=== PATIENT | female | born 1940 | race Hispanic/Latino ===

== ENCOUNTER → 2018-03-21 | Outpatient (CLI) | payer OTHER | END | disposition home or self-care (01) | LOC: RAH 13:47 | PROVIDERS: ATTEND Internal Medicine | DX: Z12.31 Encounter for screening mammogram for malignant neoplasm of breast (principal) | CPT/HCPCS: 77067 ==

== ENCOUNTER → 2018-05-04 | Outpatient (CLI) | payer OTHER | END | disposition home or self-care (01) | LOC: SHCH 14:45 | PROVIDERS: ATTEND Internal Medicine Cardiovascular Disease | DX: R00.1 Bradycardia, unspecified (principal) | CPT/HCPCS: 93306 ==

== ENCOUNTER → 2019-01-03 | Outpatient (CLI) | payer OTHER | END | disposition home or self-care (01) | LOC: RAH 10:58 | PROVIDERS: ATTEND Physical Medicine & Rehabilitation | DX: M54.6 Pain in thoracic spine (principal); M25.512 Pain in left shoulder | CPT/HCPCS: 72072; 73030 ==

== ENCOUNTER → 2019-03-05 | Outpatient (CLI) | payer OTHER, MEDICARE | END | disposition home or self-care (01) | LOC: RAH 12:27 | PROVIDERS: ATTEND Physical Medicine & Rehabilitation | DX: M48.02 Spinal stenosis, cervical region (principal) | CPT/HCPCS: 72050 ==

== ENCOUNTER → 2019-03-26 | Outpatient (CLI) | payer OTHER, MEDICARE | END | disposition home or self-care (01) | LOC: RAH 10:46 | PROVIDERS: ATTEND Physical Medicine & Rehabilitation | DX: M47.812 Spondylosis without myelopathy or radiculopathy, cervical region (principal); M48.02 Spinal stenosis, cervical region; M50.222 Other cervical disc displacement at C5-C6 level | CPT/HCPCS: 72141 ==

== ENCOUNTER 2019-06-01 01:43 | Emergency (ER) | payer OTHER, MEDICARE ==
[2019-06-01 02:22] LABS: BASOPHILS % (AUTO) 0.6 % (0.0-5.0); EOSINOPHILS % (AUTO) 8.4 % (0.0-8.0); HEMATOCRIT 36.6 % (36-48); LYMPHOCYTES % (AUTO) 33.8 % (21.0-51.0); MEAN CORPUSCULAR HEMOGLOBIN 28.8 pg (27.0-33.0); MEAN CORPUSCULAR HGB CONC 32.8 g/dL (32.0-36.0); MEAN CORPUSCULAR VOLUME 87.8 fL (79-99); MONOCYTES % (AUTO) 10.3 % (3.0-13.0); NEUTROPHILS % (AUTO) 46.7 % (40.0-77.0); PLATELET COUNT (AUTO) 239 K/uL (130-400); RED BLOOD CELL COUNT(AUTO) 4.17 MIL/uL (4.00-5.50); RED CELL DISTRIBUTION WIDTH 12.4 % (11.0-15.5); WHITE BLOOD COUNT (AUTO) 6.2 K/uL (4.8-10.8)
[2019-06-01 02:27] LABS: POTASSIUM 3.9 mmol/L (3.5-5.1)
== END 2019-06-01 03:14 | disposition home or self-care (01) ==
LOC: EDH 01:43
DX: F43.0 Acute stress reaction (principal); I25.10 Atherosclerotic heart disease of native coronary artery without angina pectoris; K21.9 Gastro-esophageal reflux disease without esophagitis; Z91.041 Radiographic dye allergy status
CPT/HCPCS: 36415; 74018; 80048; 84484; 85025; 93005

== ENCOUNTER → 2020-08-04 | Outpatient (CLI) | payer OTHER, MEDICARE | END | disposition home or self-care (01) | LOC: SHCH 12:38 | PROVIDERS: ATTEND Internal Medicine Cardiovascular Disease | DX: I87.2 Venous insufficiency (chronic) (peripheral) (principal); I73.89 Other specified peripheral vascular diseases | CPT/HCPCS: 93925; 93970 ==

== ENCOUNTER → 2020-08-07 | Outpatient (CLI) | payer OTHER, MEDICARE ==
[~2020-08-07] VITALS: Ht 157.5 cm; Wt 78.0 kg
[~2020-08-07] MED LIST: REGADENOSON 0.4 MG/5 ML PF SYG IVP SCH
== END | disposition home or self-care (01) ==
LOC: SHCH 07:38
PROVIDERS: ATTEND Internal Medicine Cardiovascular Disease
DX: R07.9 Chest pain, unspecified (principal)
CPT/HCPCS: 78452; 93017; 96374; A9500 ×2; J2785

== ENCOUNTER → 2021-12-20 | Outpatient (CLI) | payer OTHER, MEDICARE | END | disposition home or self-care (01) | LOC: RAH 09:46 | PROVIDERS: ATTEND Internal Medicine | DX: M54.2 Cervicalgia (principal); M79.602 Pain in left arm; M79.601 Pain in right arm; M54.12 Radiculopathy, cervical region | CPT/HCPCS: 72040; 73030 ==

== ENCOUNTER → 2022-07-23 | Outpatient (CLI) | payer OTHER, MEDICARE | END | disposition home or self-care (01) | LOC: SHCH 08:55 | PROVIDERS: ATTEND Internal Medicine Cardiovascular Disease | DX: I65.23 Occlusion and stenosis of bilateral carotid arteries (principal); I25.10 Atherosclerotic heart disease of native coronary artery without angina pectoris; I11.9 Hypertensive heart disease without heart failure; E78.5 Hyperlipidemia, unspecified; I87.2 Venous insufficiency (chronic) (peripheral); I49.3 Ventricular premature depolarization; Z79.899 Other long term (current) drug therapy | CPT/HCPCS: 93880 ==

== ENCOUNTER 2022-11-28 11:21 | Observation (INO) | payer OTHER, MEDICARE ==
[~2022-11-28] VITALS: Ht 157.5 cm; Wt 70.1 kg
[2022-11-28 11:57] LABS: BASOPHILS % (AUTO) 0.5 % (0.0-5.0); EOSINOPHILS % (AUTO) 10.2 % (0.0-8.0); HEMATOCRIT 32.2 % (36-48); LYMPHOCYTES % (AUTO) 20.8 % (21.0-51.0); MEAN CORPUSCULAR HEMOGLOBIN 29.1 pg (27.0-33.0); MEAN CORPUSCULAR HGB CONC 32.9 g/dL (32.0-36.0); MEAN CORPUSCULAR VOLUME 88.5 fL (79-99); MONOCYTES % (AUTO) 9.1 % (3.0-13.0); NEUTROPHILS % (AUTO) 59.1 % (40.0-77.0); PLATELET COUNT (AUTO) 199 K/uL (130-400); RED BLOOD CELL COUNT(AUTO) 3.64 MIL/uL (4.00-5.50); RED CELL DISTRIBUTION WIDTH 12.7 % (11.0-15.5); WHITE BLOOD COUNT (AUTO) 6.5 K/uL (4.8-10.8)
[2022-11-28] MEDS ORDERED: NITROGLYCERIN 0.4 MG SL TAB SL PRN ×2 (12:00→13:30)
[2022-11-28 12:04] LABS: POTASSIUM 4.2 mmol/L (3.5-5.1)
[2022-11-28 12:17] LABS: ALBUMIN 3.5 g/dL (3.5-5.0); MAGNESIUM 2.1 mg/dL (1.80-2.40); THYROID STIMULATING HORMONE 2.25 uIU/mL (0.36-3.74); TOTAL PROTEIN, SERUM 6.8 g/dL (6.0-8.3)
[2022-11-28] MEDS ORDERED: ASPIRIN 81MG CHEW TAB PO ONE (13:30)
[2022-11-28 13:51] LABS: APPEARANCE,URINE CLEAR (CLEAR); BILIRUBIN,URINE NEGATIVE (NEGATIVE); COLOR,URINE COLORLESS (YELLOW); GLUCOSE, URINE (UA) NEGATIVE (NEGATIVE); KETONES,URINE NEGATIVE (NEGATIVE); LEUKOCYTE ESTERASE ,URINE NEGATIVE Leu/uL (NEGATIVE); NITRATE,URINE NEGATIVE (NEGATIVE); OCCULT BLOOD,URINE NEGATIVE (NEGATIVE); PH,URINE 6.5 (5.0-8.0); PROTEIN,URINE NEGATIVE (NEGATIVE); UROBILINOGEN,URINE 0.2 mg/dL (0.2-1.0)
[2022-11-28 13:56] LABS: HEMOGLOBIN A1C 5.8 % (4.0-6.0)
[2022-11-28] MEDS ORDERED: ALBUTEROL INHALER 90MCG/INH IH PRN (17:00)
[2022-11-28] MEDS ORDERED: LORA10TA7 PO (18:41)
[2022-11-28] MEDS ORDERED: CARV25TA PO (18:41)
[2022-11-28] MEDS ORDERED: OMEP40CA21 PO (18:41)
[2022-11-28 23:40] VITALS: BP 144/63; PULSE 55; RESP 18
[2022-11-29 00:19] VITALS: O2SAT 97
[2022-11-29 03:40] VITALS: BP 140/71; PULSE 55; RESP 18
[2022-11-29 06:22] LABS: BASOPHILS % (AUTO) 0.7 % (0.0-5.0); EOSINOPHILS % (AUTO) 9.1 % (0.0-8.0); LYMPHOCYTES % (AUTO) 22.7 % (21.0-51.0); MEAN CORPUSCULAR HEMOGLOBIN 29.1 pg (27.0-33.0); MEAN CORPUSCULAR HGB CONC 32.4 g/dL (32.0-36.0); MEAN CORPUSCULAR VOLUME 89.7 fL (79-99); MONOCYTES % (AUTO) 9.1 % (3.0-13.0); NEUTROPHILS % (AUTO) 58.3 % (40.0-77.0); PLATELET COUNT (AUTO) 220 K/uL (130-400); RED BLOOD CELL COUNT(AUTO) 3.68 MIL/uL (4.00-5.50); RED CELL DISTRIBUTION WIDTH 12.9 % (11.0-15.5); WHITE BLOOD COUNT (AUTO) 7.1 K/uL (4.8-10.8)
[2022-11-29 06:31] LABS: CREATININE 0.9 mg/dL (0.5-1.5); POTASSIUM 3.9 mmol/L (3.5-5.1)
[2022-11-29] MEDS ORDERED: NITR0.3T11 SL (07:35)
[2022-11-29 08:00] VITALS: BP 133/61; PULSE 51; RESP 18; O2SAT 97
[2022-11-29] MEDS ORDERED: CARVEDILOL 25 MG TABLET PO SCH (08:00)
[2022-11-29] MEDS ORDERED: PANTOPRAZOLE 40 MG TAB DR PO SCH (09:00)
[2022-11-29] MEDS ORDERED: ASPIRIN 81MG CHEW TAB PO SCH (09:00)
[2022-11-29 12:00] VITALS: BP 155/79; PULSE 51; RESP 17
[2022-11-29 16:00] VITALS: BP 152/77; PULSE 52; RESP 18
== END 2022-11-29 16:20 | disposition home or self-care (01) ==
LOC: EDH 11:21 → INTOOBSV 13:16 → EDHIP 13:16 → EEVIPCON 13:16 → 3DH 22:54
PROVIDERS: ADMIT Internal Medicine; ATTEND Internal Medicine
DX: R07.89 Other chest pain (principal); I10 Essential (primary) hypertension; I49.3 Ventricular premature depolarization; J45.909 Unspecified asthma, uncomplicated; E11.9 Type 2 diabetes mellitus without complications; E78.5 Hyperlipidemia, unspecified; T50.2X5A Adverse effect of carbonic-anhydrase inhibitors, benzothiadiazides and other diuretics, initial encounter; Z86.718 Personal history of other venous thrombosis and embolism; Z79.899 Other long term (current) drug therapy; Z98.890 Other specified postprocedural states
CPT/HCPCS: 99285; 83036; 84443; 82550; 83735; 84484 ×3; 80053; 85025 ×2; 81003; 36415 ×2; 71045; 93005; 80048; 93306; G0378 ×4

== ENCOUNTER → 2024-01-06 | Outpatient (CLI) | payer OTHER, MEDICARE ==
[~2024-01-06] MED LIST changes: +CARV25TA PO; +LORA10TA7 PO; +NITR0.3T11 SL; +OMEP40CA21 PO; -REGADENOSON 0.4 MG/5 ML PF SYG IVP SCH
== END | disposition home or self-care (01) ==
LOC: SHCH 08:25
PROVIDERS: ATTEND Internal Medicine Cardiovascular Disease
DX: I87.2 Venous insufficiency (chronic) (peripheral) (principal); I87.1 Compression of vein; I73.9 Peripheral vascular disease, unspecified
CPT/HCPCS: 93925; 93970

== ENCOUNTER → 2024-04-23 | Outpatient (CLI) | payer OTHER, MEDICARE ==
--- NOTE | 2024-04-23 10:55 | HMCIMG ---
Exam: CERVICAL SPINE 2 VIEWS REASON: DORSALGIA, UNSPECIFIED TECHNIQUE: 12/20/2021 views were obtained. FINDINGS: There are normal appearing vertebral bodies. There is moderate interspace narrowing C5-6. There are mild degenerative changes in the facets. There are no visible fractures. Soft tissues appear unremarkable. IMPRESSION: 1. Mild cervical degenerative changes epicentered at C5-6 disc interspace.
--- NOTE | 2024-04-23 11:01 | HMCIMG ---
EXAM: LUMBAR SPINE 2-3VWS REASON: DORSALGIA, UNSPECIFIED. COMPARISON: None. TECHNIQUE: 3 views of the lumbar spine were obtained. FINDINGS: There is 7 degrees and DEXA scoliosis of the mid lumbar spine. There is 5 mm anterior subluxation of L5 4 on L5. There is mild interspace narrowing at L4-5 and at L3-4. There are degenerative changes in the facets most pronounced at L4-5 and L5-S1. There are no compression fractures. Remaining vertebral disc space heights are preserved and alignment is otherwise unremarkable. Soft tissues appear unremarkable. IMPRESSION: 1. Lumbar spine degenerative changes with 7 degree dextroscoliosis. 2. There is also 5 mm anterior subluxation of L4 on L5.
== END | disposition home or self-care (01) ==
LOC: RAH 09:15
PROVIDERS: ATTEND Internal Medicine
DX: S33.140A Subluxation of L4/L5 lumbar vertebra, initial encounter (principal); M47.817 Spondylosis without myelopathy or radiculopathy, lumbosacral region; M47.812 Spondylosis without myelopathy or radiculopathy, cervical region; M48.02 Spinal stenosis, cervical region; M54.9 Dorsalgia, unspecified; X58.XXXA Exposure to other specified factors, initial encounter; M41.86 Other forms of scoliosis, lumbar region; Y93.89 Activity, other specified; Y92.89 Other specified places as the place of occurrence of the external cause; Y99.8 Other external cause status
CPT/HCPCS: 72040; 72100

== ENCOUNTER → 2025-01-30 | Outpatient (CLI) | payer OTHER ==
--- NOTE | 2025-01-31 07:14 | HMCIMG ---
EXAM: CR Left Shoulder, 2 views. CLINICAL HISTORY: Pain. COMPARISON: None provided. FINDINGS: No acute fracture or aggressive appearing osseous lesion. Unremarkable joint spaces. The soft tissues are unremarkable. IMPRESSION: 1. No acute bony changes. /[place]
== END | disposition home or self-care (01) ==
LOC: RAH 08:44
PROVIDERS: ATTEND Internal Medicine
DX: M25.512 Pain in left shoulder (principal)
CPT/HCPCS: 73030

== ENCOUNTER → 2025-03-20 | Outpatient (CLI) | payer OTHER ==
--- NOTE | 2025-03-20 21:50 | HMCIMG ---
EXAM: XR Pelvis with left Hip, 3 Views. CLINICAL HISTORY: Left hip pain. COMPARISON: None provided. FINDINGS: BONES: Diffuse osteopenia is present. No acute fracture or focal osseous lesion. JOINTS: No dislocation. There are degenerative changes in the both hip joints with marginal osteophytes, subchondral sclerosis with asymmetric joint space reduction, more prominent along the superolateral aspect of the hip joint. SOFT TISSUES: There are multiple pelvic phleboliths. There is diffuse muscular atrophy in the left thigh with prominence of the intermuscular fat planes. IMPRESSION: 1. Degenerative changes in the both hip joints without acute fracture or dislocation. 2. 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 3. Diffuse osteopenia. /[place]
== END | disposition home or self-care (01) ==
LOC: RAH 08:41
PROVIDERS: ATTEND Clinical Nurse Specialist Family Health
DX: M16.0 Bilateral primary osteoarthritis of hip (principal); M85.88 Other specified disorders of bone density and structure, other site; I87.8 Other specified disorders of veins; M62.58 Muscle wasting and atrophy, not elsewhere classified, other site; M25.552 Pain in left hip
CPT/HCPCS: 73502